=== PATIENT | male | born 1955 | race Two or more races ===

== ENCOUNTER 2019-02-26 00:22 | Inpatient (IN) | payer SELFPAY ==
[~2019-02-26] VITALS: Ht 182.9 cm; Wt 37.9 kg
[2019-02-26] MEDS ORDERED: ALBUTEROL SULF 2.5 MG/0.5ML(0.5%) NEB SOLN ONE (00:26)
[2019-02-26] MEDS ORDERED: IPRATROPIUM BROM 0.5 MG/2.5ML INH SOL ONE (00:26)
[2019-02-26] MEDS ORDERED: methylPREDNISolone SOD SUCC 125 MG/2 ML VL ONE (00:29)
[2019-02-26] MEDS ORDERED: LORazepam 2MG/ML-1ML VIAL ONE (00:29)
[2019-02-26] MEDS ORDERED: IPRATROPIUM BROM 0.5 MG/2.5ML INH SOL NEB ONE (00:30)
[2019-02-26] MEDS ORDERED: LORazepam 2MG/ML-1ML VIAL IV ONE (00:30)
[2019-02-26] MEDS ORDERED: ALBUTEROL SULF 2.5 MG/0.5ML(0.5%) NEB SOLN NEB ONE (00:30)
[2019-02-26] MEDS ORDERED: methylPREDNISolone SOD SUCC 125 MG/2 ML VL IV ONE (00:30)
[2019-02-26 00:49] LABS: Basophils # (auto) 0.1 uL; Basophils % (auto) 0.7 % (0.0-2.0); Eosinophils # (auto) 0.5 uL; Eosinophils % (auto) 6.2 % (0.0-7.0); Hematocrit 49.5 % (41.0-53.0); Hemoglobin 16.9 g/dL (13.5-17.5); Lymphocytes # (auto) 2.2 uL; Lymphocytes % (auto) 29.9 % (10.0-50.0); Mean Corpuscular Hemoglobin 32.8 pg (28.0-32.0); Mean Corpuscular Hgb Conc. 34.2 g/dL (32.0-36.0); Monocytes # (auto) 0.8 uL; Monocytes % (auto) 10.3 % (0.0-12.0); Neutrophils % (auto) 52.9 % (37.0-80.0); Nucleated Red Blood Cells % 0.2 %; Platelet Count (auto) 103 10^3/uL (140-450); Red Blood Cells 5.16 10^6/uL (4.5-5.90); Red Cell Distribution Width 13.9 % (11.8-14.3); White Blood Cell 7.5 10^3/uL (4.4-10.8)
[2019-02-26 01:09] LABS: Albumin 4.1 g/dL (3.4-5.0); Potassium 3.7 mmol/L (3.5-5.1)
[2019-02-26 01:10] LABS: Magnesium 2.1 mg/dL (1.6-2.6)
[2019-02-26 01:11] LABS: BUN/Creatinine Ratio 11.6
[2019-02-26 01:14] LABS: Bilirubin, Total 0.9 mg/dL (0.2-1.0); Total Protein 8.3 g/dL (6.4-8.2)
[2019-02-26] MEDS ORDERED: TEMAZEPAM 15 MG CAP PO PRN (06:15)
[2019-02-26] MEDS ORDERED: MORPHINE SULF INJ 2 MG/ML SYRINGE 1ML IV PRN (06:15)
[2019-02-26] MEDS ORDERED: ACETAMINOPHEN 325 MG TAB PO PRN (06:15)
[2019-02-26] MEDS ORDERED: ONDANSETRON HCL 4 MG/2 ML VIAL IV PRN (06:15)
[2019-02-26] MEDS ORDERED: NITROGLYCERIN 0.4 MG SL TAB SL PRN (06:15)
--- NOTE | 2019-02-26 08:42 | NUR ---
Telemetry admit from [facility]E admitted to Telemetry unit 212A after SBAR received from JOHN Jones. Patient oriented to JOSSELIN BRASWELL RN primary RN, unit, room, bed, and unit policies regarding patient care and visiting hours. Patient now on continuous telemetry monitoring, tele box #40 and telemetry reading on arrival to unit is 105bpm. Patient placed on bedside oxygen at 5L N/C, weighed by bedscale and encouraged to call if they need something with call light within reach. Bed in low/locked position, bed rails up x2. All questions and concerns addressed, patient verbalized understanding. Will continue to monitor q1h and prn.
[2019-02-26 09:00] VITALS: BP 162/87
--- NOTE | 2019-02-26 09:30 | NUR ---
AT BEDSIDE DR TAYLOR AT BEDSIDE DISCUSSING POC WITH PATIENT. ALL QUESTIONS/CONCERNS ANSWERED. NEW ORDERS RECEIVED/CARRIED OUT. WILL CONTINUE TO MONITOR.
[2019-02-26] MEDS ORDERED: IBUPROFEN 400 MG TAB PO PRN (09:45)
[2019-02-26] MEDS ORDERED: cefTRIAXone 1GM/50ML D5W 50 ML IV ONE (09:45)
[2019-02-26] MEDS ORDERED: methylPREDNISolone SOD SUCC 125 MG/2 ML VL IV SCH (10:00)
[2019-02-26] MEDS: FAMOTIDINE 20 MG TAB PO SCH ×2 (10:34→21:34)
[2019-02-26] MEDS: BUDESONIDE (INHALATION) 0.5 MG/2 ML NEB NEB SCH ×2 (11:22→18:40)
[2019-02-26] MEDS: IPRATROPIUM BROM 0.5 MG/2.5ML INH SOL NEB SCH ×2 (11:22→18:40)
[2019-02-26] MEDS: ALBUTEROL SULF 2.5 MG/0.5ML(0.5%) NEB SOLN NEB SCH ×2 (11:22→18:40)
[2019-02-26 13:00] VITALS: BP 157/84
[2019-02-26 13:10] VITALS: BP 151/78
[2019-02-26] MEDS: AZITHROMYCIN 250 MG TAB PO SCH (13:23)
--- NOTE | 2019-02-26 13:30 | NUR ---
AT BEDSIDE DR BURDEN AT BEDSIDE DISCUSSING POC WITH PATIENT. ALL QUESTIONS/CONCERNS ANSWERED. WILL CONTINUE TO MONITOR.
[2019-02-26 17:00] VITALS: BP 145/84
--- NOTE | 2019-02-26 19:30 | NUR ---
Opening Shift Note Assumed care of patient, awake and alert oriented x4. No S/S of distress/SOB or pain noted. Family at the bedside. Bed is in lowest locked position with bed rails up x2 and call light is within reach of the patient. Instructed on POC and to call for assist PRN.
[2019-02-26 21:54] VITALS: BP 147/89
[2019-02-27] MEDS: ALBUTEROL SULF 2.5 MG/0.5ML(0.5%) NEB SOLN NEB SCH ×3 (00:13→10:58)
[2019-02-27] MEDS: IPRATROPIUM BROM 0.5 MG/2.5ML INH SOL NEB SCH ×3 (00:13→10:58)
--- NOTE | 2019-02-27 00:40 | NUR ---
Heart rate went up to 130: Received call from [employer] stating patients heart rate went up to 130. Checked on patient and patient was in the bathroom. patient was alright stating " Oh Im okay I just needed to use the bathroom." Patients heart rate now at 95.
[2019-02-27 05:49] VITALS: BP 150/98
[2019-02-27 05:56] LABS: Basophils # (auto) 0 uL; Basophils % (auto) 0.2 % (0.0-2.0); Eosinophils # (auto) 0 uL; Eosinophils % (auto) 0.1 % (0.0-7.0); Hematocrit 46.6 % (41.0-53.0); Hemoglobin 16.3 g/dL (13.5-17.5); Lymphocytes # (auto) 1.5 uL; Mean Corpuscular Hemoglobin 33.2 pg (28.0-32.0); Mean Corpuscular Hgb Conc. 34.9 g/dL (32.0-36.0); Mean Corpuscular Volume 94.9 fL (80.0-100.0); Monocytes # (auto) 1.2 uL; Neutrophils # (auto) 12.2 uL; Neutrophils % (auto) 81.7 % (37.0-80.0); Nucleated Red Blood Cells % 0.4 %; Platelet Count (auto) 107 10^3/uL (140-450); Red Blood Cells 4.91 10^6/uL (4.5-5.90); Red Cell Distribution Width 13.7 % (11.8-14.3)
[2019-02-27] MEDS: BUDESONIDE (INHALATION) 0.5 MG/2 ML NEB NEB SCH (05:59)
[2019-02-27 06:24] LABS: Potassium 3.6 mmol/L (3.5-5.1)
[2019-02-27 06:30] LABS: BUN/Creatinine Ratio 17.4; Calcium 8.8 mg/dL (8.5-10.1)
[2019-02-27 06:44] LABS: Total Protein 8.4 g/dL (6.4-8.2)
--- NOTE | 2019-02-27 07:30 | NUR ---
Opening Shift Note Assumed care of patient, awake, alert and oriented. No S/S of distress/SOB or pain. Bed in low/locked position, bed rails up x2. Instructed on POC and to call for assist PRN with call light within reach. All questions/concerns answered. Will continue to monitor for changes Q1hr and PRN.
--- NOTE | 2019-02-27 07:45 | NUR ---
SPUTUM SPUTUM CULTURE COLLECTED AND SENT TO LAB
[2019-02-27 08:41] VITALS: BP 146/78
[2019-02-27] MEDS ORDERED: cefTRIAXone 1GM/50ML D5W 50 ML IV SCH (09:00)
[2019-02-27] MEDS: FAMOTIDINE 20 MG TAB PO SCH (09:21)
[2019-02-27] MEDS: AZITHROMYCIN 250 MG TAB PO SCH (09:21)
[2019-02-27] MEDS ORDERED: predniSONE 20 MG TAB PO SCH (10:00)
[2019-02-27 13:00] VITALS: BP 144/85
[2019-02-27 13:12] VITALS: BP 144/85
[2019-02-27 13:42] VITALS: BP 144/85
--- NOTE | 2019-02-27 14:20 | NUR ---
Discharge instructions given as ordered. Encourage to follow up with PMD as instructed. All questions and concerns addressed. Patient verbalized understanding. IV removed with catheter intact, pressure dressing applied. Telemetry unit returned to ICU. Patient taken to vehicle via wheelchair with all personal belongings, accompanied by staff and family member. No distress noted at time of departure.
== END 2019-02-27 14:20 | disposition home or self-care (01) | DRG 189 ==
LOC: ER 00:25 → TELE 00:26 → TELE-CENTR 08:49
PROVIDERS: ADMIT Nurse Practitioner; ATTEND Internal Medicine Pulmonary Disease
DX: J96.22 Acute and chronic respiratory failure with hypercapnia (principal); J44.1 Chronic obstructive pulmonary disease with (acute) exacerbation; J45.901 Unspecified asthma with (acute) exacerbation; D69.6 Thrombocytopenia, unspecified; F17.210 Nicotine dependence, cigarettes, uncomplicated; J20.9 Acute bronchitis, unspecified; N18.2 Chronic kidney disease, stage 2 (mild); Z79.899 Other long term (current) drug therapy
CPT/HCPCS: 36415; 36600; 71045; 80053; 82805; 83735; 83880; 84484; 85025; 85379; 87040; 87070; 87205; 93005; 94640; 94660; G0378; J0696

== ENCOUNTER 2019-05-05 22:47 | Inpatient (IN) | payer SELFPAY ==
[~2019-05-05] VITALS: Ht 182.9 cm; Wt 77.0 kg
[2019-05-05] MEDS ORDERED: ALBUTEROL SULF 2.5 MG/0.5ML(0.5%) NEB SOLN NEB ONE ×2 (23:00→23:30)
[2019-05-05] MEDS ORDERED: IPRATROPIUM BROM 0.5 MG/2.5ML INH SOL NEB ONE (23:00)
[2019-05-05] MEDS ORDERED: methylPREDNISolone SOD SUCC 125 MG/2 ML VL IV ONE (23:00)
[2019-05-05 23:25] LABS: Basophils # (auto) 0.2 uL; Basophils % (auto) 3.4 % (0.0-2.0); Eosinophils # (auto) 0.6 uL; Eosinophils % (auto) 7.9 % (0.0-7.0); Hematocrit 49.5 % (41.0-53.0); Hemoglobin 17.6 g/dL (13.5-17.5); Lymphocytes # (auto) 1.4 uL; Lymphocytes % (auto) 19.4 % (10.0-50.0); Mean Corpuscular Hemoglobin 33.1 pg (28.0-32.0); Mean Corpuscular Hgb Conc. 35.6 g/dL (32.0-36.0); Mean Corpuscular Volume 92.9 fL (80.0-100.0); Monocytes # (auto) 0.9 uL; Monocytes % (auto) 11.9 % (0.0-12.0); Neutrophils # (auto) 4.2 uL; Neutrophils % (auto) 57.4 % (37.0-80.0); Nucleated Red Blood Cells % 0.2 %; Platelet Count (auto) 111 10^3/uL (140-450); Red Blood Cells 5.33 10^6/uL (4.5-5.90); White Blood Cell 7.2 10^3/uL (4.4-10.8)
[2019-05-05] MEDS ORDERED: ALBUTEROL SULF 2.5 MG/0.5ML(0.5%) NEB SOLN ONE (23:27)
[2019-05-05] MEDS ORDERED: LORazepam 2MG/ML-1ML VIAL IV ONE (23:30)
[2019-05-05 23:43] LABS: Alanine Aminotransferase 110 U/L (16-61); Anion Gap 5 (5-15); Aspartate Aminotransferase 70 U/L (15-37); BUN/Creatinine Ratio 12.7; Blood Urea Nitrogen 14 mg/dL (7-18); Calcium 8.4 mg/dL (8.5-10.1); Carbon Dioxide 27 mmol/L (21-32); Chloride 109 mmol/L (98-107); GFR African American 87 mL/min; GFR Non-African American 72 mL/min; Glucose 121 mg/dL (74-106); Potassium 4.1 mmol/L (3.5-5.1); Sodium 141 mmol/L (136-145)
[2019-05-05 23:47] LABS: Alkaline Phosphatase 108 U/L (45-117); Total Protein 8.8 g/dL (6.4-8.2)
[2019-05-06] MEDS ORDERED: LEVOFLOXACIN 500MG 100 ML IV ONE (02:00)
[2019-05-06] MEDS ORDERED: TEMAZEPAM 15 MG CAP PO PRN (02:45)
[2019-05-06] MEDS ORDERED: ONDANSETRON HCL 4 MG/2 ML VIAL IV PRN (02:45)
[2019-05-06] MEDS ORDERED: ACETAMINOPHEN 325 MG TAB PO PRN (02:45)
[2019-05-06] MEDS ORDERED: NICOTINE 14 MG/24HR TOPICAL PATCH TD ONE (03:15)
[2019-05-06 04:23] VITALS: BP 142/81
[2019-05-06] MEDS: ALBUTEROL SULF 2.5 MG/0.5ML(0.5%) NEB SOLN NEB SCH ×2 (05:55→12:40)
[2019-05-06] MEDS: IPRATROPIUM BROM 0.5 MG/2.5ML INH SOL NEB SCH ×2 (05:55→12:40)
[2019-05-06 06:11] VITALS: BP 142/81
[2019-05-06 08:00] VITALS: BP 165/86
[2019-05-06 09:00] VITALS: BP 165/86
[2019-05-06 09:37] LABS: Urine Bacteria NONE SEEN /hpf (None Seen); Urine Blood Negative /uL (Negative); Urine Mucus FEW (None Seen); Urine Specific Gravity 1.022 (1.001-1.035); Urine WBC 1 /hpf (0 - 3)
[2019-05-06] MEDS ORDERED: methylPREDNISolone SOD SUCC 125 MG/2 ML VL IV SCH (10:00)
[2019-05-06] MEDS ORDERED: NICOTINE 14 MG/24HR TOPICAL PATCH TD SCH (10:00)
[2019-05-06] MEDS ORDERED: FAMOTIDINE 20 MG TAB PO SCH (10:00)
[2019-05-06] MEDS ORDERED: LEVOFLOXACIN 250MG 50 ML IV ONE (10:15)
[2019-05-06 13:00] VITALS: BP 155/94
[2019-05-06 15:44] VITALS: BP 155/94
== END 2019-05-06 16:55 | disposition home or self-care (01) | DRG 202 ==
LOC: ER 22:49 → OVERFLOW 22:50 → EAST 05-06 04:20
PROVIDERS: ADMIT Nurse Practitioner; ATTEND Family Medicine
DX: J20.9 Acute bronchitis, unspecified (principal); J44.1 Chronic obstructive pulmonary disease with (acute) exacerbation; J44.0 Chronic obstructive pulmonary disease with (acute) lower respiratory infection; F17.210 Nicotine dependence, cigarettes, uncomplicated; I10 Essential (primary) hypertension; Z71.6 Tobacco abuse counseling; Z79.899 Other long term (current) drug therapy
CPT/HCPCS: 36415; 71045; 80053; 81001; 83880; 84484; 85025; 94640; 94644; 96365; 96366; 96375; 96376; G0378; J1956

== ENCOUNTER 2025-01-31 18:24 | Emergency (ER) | payer MEDICAID, MEDICARE ==
[~2025-01-31] VITALS: Ht 180.3 cm; Wt 86.5 kg
--- NOTE | 2025-01-31 19:20 | ED.PDOC ---
GI ASSESSMENT HPI Comments 69-year-old male who came to ER for abdominal pain. Patient states about 1 hour prior to arrival, he developed sudden onset diffuse abdominal pain followed by dizziness. Denies any nausea, vomiting or changes in bowel habits. States last BM was yesterday. Patient states abdominal pain started after he had a fountain drink. Chief Complaint: Abdominal Pain Time Seen by MD: 19:20 Primary Care Provider: NONE Reviewed Notes: Nurses Notes Allergies: Coded Allergies: No Known Drug Allergy (Verified Allergy, Unknown, 02/26/19) Home Meds No Active Prescriptions or Reported Meds Information Source: Patient Mode of Arrival: EMS Timing: Minutes Duration: Since onset Quality: Aching Vomitus: None Stool: Normal Severity: Moderate Pain Location: Diffuse Associated sign and symptoms: Abdominal Pain Past Medical History PAST MEDICAL HISTORY: COPD Surgical History: Denies all surgeries Family History Family History: No family hx of HTN Social History Smoker: Cigarettes Alcohol: Occasionally Drugs: Denies Drug Use Lives In: Home Constitutional: denies: chills, diaphoresis, fatigue, fever, malaise, sweats, weakness, others EENTM: denies: blurred vision, double vision, ear bleeding, ear discharge, ear drainage, ear pain, ear ringing, eye pain, eye redness, hearing loss, mouth pain, mouth swelling, nasal discharge, nose bleeding, nose congestion, nose pain, photophobia, tearing, throat pain, throat swelling, voice changes, others Respiratory: denies: cough, hemoptysis, orthopnea, SOB at rest, shortness of breath, SOB with excertion, stridor, wheezing, others Cardiovascular: denies: chest pain, dizzy spells, diaphoresis, Dyspnea on exertion, edema, irregular heart beat, left arm pain, lightheadedness, palpitations, PND, syncope, others Gastrointestinal: reports: abdominal pain; denies: abdomen distended, blood streaked bowels, constipated, diarrhea, dysphagia, difficulty swallowing, hematemesis, melena, nausea, poor appetite, poor fluid intake, rectal bleeding, rectal pain, vomiting, others Genitourinary: denies: burning, dysuria, flank pain, frequency, hematuria, incontinence, penile discharge, penile sore, pain, testicle pain, testicle swelling, urgency, others Neurological: reports: dizziness; denies: fainting, headache, left sided numbness, left sided weakness, numbness, paresthesia, pre-existing deficit, right sided numbness, right sided weakness, seizure, speech problems, tingling, tremors, weakness, others Musculoskeletal: denies: back pain, gout, joint pain, joint swelling, muscle pain, muscle stiffness, neck pain, others Integumetry: denies: bruises, change in color, change in hair/nails, dryness, laceration, lesions, lumps, rash, wounds, others Allergic/Immunocompromised: denies: Difficulty Healing, Frequent Infections, Hives, Itching, others Hematologic/Lymphatic: denies: anemia, blood clots, easy bleeding, easy bruising, swollen glands, others Endocrine: denies: excessive hunger, excessive sweating, excessive thirst, excessive urination, flushing, intolerance to cold, intolerance to heat, unexplained weight gain, unexplained weight loss, others Psychiatric: denies: anxiety, bipolar disorder, depression, hopeless, panic disorder, schizophrenia, sleepless, suicidal, others Physical Exam General Appearance: No Apparent Distress, Normal HEENT: Normal ENT Inspection, Pharynx Normal, TMs Normal Neck: Full Range of Motion, Non-Tender, Normal, Normal Inspection Respiratory: Chest Non-Tender, Lungs Clear, No Accessory Muscle Use, No Respiratory Distress, Normal Breath Sounds Cardiovascular: No Edema, No JVD, No Murmur, No Gallop, Normal Peripheral Pulses, Regular Rate/Rhythm Breast Exam: Deferred Gastrointestinal: No Organomegaly, Non Tender, No Pulsatile Mass, Normal Bowel Sounds, Soft Genitalia: Deferred Pelvic: Deferred Rectal: Deferred Extremities: No calf tenderness, Normal capillary refill, Normal inspection, Normal range of motion, Non-tender, No pedal edema Musculoskeletal : Apperance: Normal Neurologic: 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 Was a procedure done?: No GI differential Dx Differential Diagnosis: Bowel Obstruction, Cholecystitis, Constipation, Diverticular disease, Gastritis/PUD, Gastroenteritis, Hernia, Hepatitis, Inflammatory BD, Ischemic Bowel, Pancreatitis, UTI, Urolithiasis, Dehydration, Food Poisoning, Bacterial, Parasitic, Viral, Impaction X-Ray, Labs, Meds, VS Vital Signs Date Time Temp Pulse Resp B/P (MAP) Pulse Ox O2 Delivery O2 Flow Rate FiO2 01/31/25 19:43 97.7 79 20 124/77 (93) 96 97.7 01/31/25 19:43 79 20 96 Nasal Cannula* 2 28 01/31/25 18:40 97.9 81 15 110/68 (82) 95 97.9 01/31/25 18:35 Nasal Cannula* 2 01/31/25 18:33 98.0 84 16 129/91 94 98.0 Lab Test 01/31/25 19:23 Range/Units White Blood Count 10.2 4.4-10.8 10^3/uL Red Blood Count 4.28 L 4.5-5.90 10^6/uL Hemoglobin 12.7 L 13.5-17.5 g/dL Hematocrit 36.9 L 41.0-53.0 % Mean Corpuscular Volume 86.2 80.0-100.0 fL Mean Corpuscular Hemoglobin 29.6 28.0-32.0 pg Mean Corpuscular Hemoglobin Concent 34.3 32.0-36.0 g/dL Red Cell Distribution Width 14.5 H 11.8-14.3 % Platelet Count 111 L 140-450 10^3/uL Mean Platelet Volume 8.0 6.9-10.8 fL Neutrophils (%) (Auto) 72.9 37.0-80.0 % Lymphocytes (%) (Auto) 16.0 10.0-50.0 % Monocytes (%) (Auto) 8.2 0.0-12.0 % Eosinophils (%) (Auto) 2.2 0.0-7.0 % Basophils (%) (Auto) 0.7 0.0-2.0 % Neutrophils # (Auto) 7.4 1.6-8.6 10 ^3/uL Lymphocytes # (Auto) 1.6 0.4-5.4 10 ^3/uL Monocytes # (Auto) 0.8 0-1.3 10 ^3/uL Eosinophils # (Auto) 0.2 0-0.8 10 ^3/uL Basophils # (Auto) 0.1 0-0.2 10 ^3/uL Nucleated Red Blood Cells 0.0 % Sodium Level 143 136-145 mmol/L Potassium Level 3.7 3.5-5.1 mmol/L Chloride Level 112 H 98-107 mmol/L Carbon Dioxide Level 21 20-31 mmol/L Anion Gap 10 5-15 Blood Urea Nitrogen 15 9-23 mg/dL Creatinine 1.57 H 0.700-1.30 mg/dL Glomerular Filtration Rate Calc 47 >90 mL/min BUN/Creatinine Ratio 9.6 L 10.0-20.0 Serum Glucose 155 H 74-106 mg/dL Calcium Level 8.3 L 8.7-10.4 mg/dL Examination: XY KUB ABDOMEN SINGLE VIEW History: r/o constipation Comparison: None TECHNIQUE: Frontal views of the abdomen was obtained. FINDINGS: Bowel gas pattern is unremarkable. The lung bases are unremarkable. No acute osseous abnormality identified. IMPRESSION: 1. Nonobstructive bowel gas pattern. 2. Stool noted throughout the colon may represent constipation. Time of 1ST Reevaluation: 19:17 Reevaluation 1ST: Unchanged Time of 2ND Reevaluation: 20:12 Reevaluation 2ND: Resolved Patient Education/Counseling: Diagnosis, Treatment, Prognosis, Need For Follow Up Family Education/Counseling: Diagnosis, Treatment, Prognosis, Need For Follow Up, Other (son, daughter, ) Comments Patient initially presented with diffuse abdominal pain. On examination however, his abdomen was soft nontender bowel sounds were decreased. No distention. On re-examination, patient reports that he feels fine his symptoms are gone. The workup shows that patient is constipated. He has some mild renal insufficiency. I have asked him to increase hydration, stop using Motrin as that can harm his kidneys. I have also prescribed him MiraLax. SEPSIS Sepsis Screen Date sepsis recognized/suspect: Jan 31, 2025 Time Sepsis recognized/suspect: 1829 Recent Procedure: No On Antibiotic Therapy: No Respiratory Rate >20: No Heart Rate >90: No Temp<36 C (96.8 F) or >38.3 C: No SBP <90 or MAP <65 mmHG: No New Acute Mental Status Change: No Is the patient on CPAP, BIPAP,: No Physician Orders Urinalysis (01/31/25 19:15) Kub Abdomen Single View (01/31/25 19:15) Vital Signs Date Time Temp Pulse Resp B/P (MAP) Pulse Ox O2 Delivery O2 Flow Rate FiO2 01/31/25 19:43 97.7 79 20 124/77 (93) 96 97.7 01/31/25 19:43 79 20 96 Nasal Cannula* 2 28 01/31/25 18:40 97.9 81 15 110/68 (82) 95 97.9 01/31/25 18:35 Nasal Cannula* 2 28 01/31/25 18:33 98.0 84 16 129/91 94 98.0 Laboratory Tests Test 01/31/25 19:23 White Blood Count 10.2 10^3/uL (4.4-10.8) Departure 1 Departure Time of Disposition: 20:13 Impression: Primary Impression: Constipation Qualified Codes: K59.01 - Slow transit constipation Additional Impression: Renal insufficiency Disposition: HOME / SELF CARE / HOMELESS Condition: Good Written Prescriptions Please increase hydration as this will improve your renal health. Stop using Motrin or any other NSAIDs, as this will harm your kidneys. You do have mild kidney insufficiency. This will need to be followed up with her doctor. For your constipation he will be prescribed MiraLax. If her symptoms are not improved or if you have any concerns feel free to return to the emergency room. e-Prescriptions Polyethylene Glycol 3350 (Miralax) 17 Gm Pow 17 GM PO DAILYP PRN, #2 POW Prov: KRISTINE MURPHY MD 01/31/25 Discharged With: Self, Relative, Spouse Critical Care Note Critical Care Time?: No Stability Stability form required: No Heart Score Heart Score: Heart Score Response (Comments) Value History N/A 0 EKG N/A 0 Age N/A 0 Risk Factors N/A 0 Troponin N/A 0 Total 0 I personally scribed for KRISTINE MURPHY MD ([email or web address]) on 01/31/25 at 19:20. Electronically submitted by Piter Muñiz ([employer]). I personally scribed for KRISTINE MURPHY MD ([email or web address]) on 01/31/25 at 20:09. Electronically submitted by [employer] ([employer]). KRISTINE MURPHY MD Jan 31, 2025 19:20
[2025-01-31 19:38] LABS: Hematocrit 36.9 % (41.0-53.0); Hemoglobin 12.7 g/dL (13.5-17.5); Mean Corpuscular Hemoglobin 29.6 pg (28.0-32.0); Mean Corpuscular Volume 86.2 fL (80.0-100.0); Nucleated Red Blood Cells % 0.0 %
[2025-01-31 19:43] VITALS: PULSE 79; RESP 20; O2SAT 96
[2025-01-31 19:45] LABS: Potassium 3.7 mmol/L (3.5-5.1); Sodium 143 mmol/L (136-145)
[2025-01-31 19:46] LABS: Anion Gap 10 (5-15); Carbon Dioxide 21 mmol/L (20-31)
[2025-01-31 19:49] LABS: Calcium 8.3 mg/dL (8.7-10.4); Chloride 112 mmol/L (98-107)
[2025-01-31 19:51] LABS: BUN/Creatinine Ratio 9.6 (10.0-20.0); Blood Urea Nitrogen 15 mg/dL (9-23); Glucose 155 mg/dL (74-106)
--- NOTE | 2025-01-31 19:57 | DVH ---
Date: 01/31/2025 07:21 PM Examination: XY KUB ABDOMEN SINGLE VIEW History: r/o constipation Comparison: None TECHNIQUE: Frontal views of the abdomen was obtained. FINDINGS: Bowel gas pattern is unremarkable. The lung bases are unremarkable. No acute osseous abnormality identified. IMPRESSION: 1. Nonobstructive bowel gas pattern. 2. Stool noted throughout the colon may represent constipation.
[2025-01-31] MEDS ORDERED: POLY335015 PO (20:19)
[2025-01-31 20:31] VITALS: BP 124/90; PULSE 78; RESP 20; TEMP 97.7; O2SAT 96
== END 2025-01-31 20:33 | disposition home or self-care (01) ==
LOC: EDBD 18:24 → ER 18:24
DX: N28.9 Disorder of kidney and ureter, unspecified (principal); K59.00 Constipation, unspecified; J44.9 Chronic obstructive pulmonary disease, unspecified; F17.210 Nicotine dependence, cigarettes, uncomplicated
CPT/HCPCS: 36415; 74018; 80048; 85025